=== PATIENT | male | born 1990 | race Caucasian/White ===

== ENCOUNTER 2018-07-23 19:04 | Emergency (ER) | payer SELFPAY ==
[2018-07-23 20:11] LABS: APPEARANCE,URINE SLIGHTLY-CLOUDY; BILIRUBIN,URINE NEGATIVE (NEGATIVE); COLOR,URINE YELLOW; GLUCOSE, URINE NEGATIVE (NEGATIVE); KETONES,URINE NEGATIVE (NEGATIVE); LEUKOCYTE ESTERASE,URINE NEGATIVE (NEGATIVE); NITRITE,URINE NEGATIVE (NEGATIVE); PROTEIN,URINE NEGATIVE (NEGATIVE); URINE SPECIFIC GRAVITY 1.031
[2018-07-23] MEDS ORDERED: AZITHROMYCIN 250 MG TABLET PO ONE (20:16)
[2018-07-23] MEDS ORDERED: CEFTRIAXONE INJ 250 MG VIAL IM ONE (20:16)
[2018-07-23] MEDS ORDERED: LIDOCAINE 1% INJ-PF (10 MG/ML) 30 ML SDV INJ ONE (20:16)
--- NOTE | 2018-07-23 20:17 | ER Document Report ---
HPI - HPI Patient complains to provider of: Concern about STD Time Seen by Provider: 07/23/18 19:52 Onset: Other - Month Pain Level: Denies Context: Patient states that he felt like he had symptoms worrisome for chlamydia about a month ago. Patient states the symptoms got better and that he has no symptoms at this time. Patient states he is here with a friend who is also being seen so that he would get checked out. Patient denies any penile drainage or discharge. Patient denies any urinary symptoms. Associated Symptoms: None Exacerbated by: Denies Relieved by: Denies Similar symptoms previously: Yes Recently seen / treated by doctor: No - ROS ROS below otherwise negative: Yes Systems Reviewed and Negative: Yes All other systems reviewed and negative - CONSTITUTIONAL Constitutional: DENIES: Fever, Chills - GASTROINTESTINAL Gastrointestinal: DENIES: Abdominal Pain, Nausea, Patient vomiting - URINARY Urinary: DENIES: Dysuria, Urgency, Frequency - MUSCULOSKELETAL Musculoskeletal: DENIES: Extremity pain - DERM Skin Color: Normal Skin Problems: None Past Medical History - General Information source: Patient - Social History Smoking Status: Current Every Day Smoker Chew tobacco use (# tins/day): No Frequency of alcohol use: Social Drug Abuse: Heroin, Methamphetamine Occupation: None Family History: Reviewed & Not Pertinent Patient has suicidal ideation: No Patient has homicidal ideation: No - Medical History Medical History: Negative Renal/ Medical History: Denies: Hx Peritoneal Dialysis Surgical Hx: Negative Vertical Provider Document - CONSTITUTIONAL Agree With Documented VS: Yes Exam Limitations: No Limitations General Appearance: WD/WN, No Apparent Distress - INFECTION CONTROL TRAVEL OUTSIDE OF THE [place] IN LAST 30 DAYS: No - HEENT HEENT: Atraumatic, Normocephalic - NECK Neck: Normal Inspection, Supple - RESPIRATORY Respiratory: Breath Sounds Normal, No Respiratory Distress - CARDIOVASCULAR Cardiovascular: Regular Rate, Regular Rhythm - GI/ABDOMEN Gastrointestinal: Abdomen Soft, Abdomen Non-Tender, No Organomegaly - REPRODUCTIVE Notes: Patient deferred - BACK Back: Normal Inspection - MUSCULOSKELETAL/EXTREMETIES Musculoskeletal/Extremeties: MAEW - NEURO Level of Consciousness: Awake, Alert, Appropriate Motor/Sensory: No Motor Deficit, No Sensory Deficit - DERM Integumentary: Warm, Dry, No Rash Course - Vital Signs Vital signs: Temp Pulse Resp BP Pulse Ox 98.4 F 78 18 126/75 H 100 07/23/18 19:08 07/23/18 19:08 07/23/18 19:08 07/23/18 19:08 07/23/18 19:08 - Laboratory Laboratory results interpreted by me: 07/23/18 19:40 Urine Urobilinogen 2.0 H Discharge - Discharge Clinical Impression: Concern about STD in male without diagnosis Condition: Stable Disposition: HOME, SELF-CARE Instructions: Azithromycin ([facility]), Rocephin ([facility]) Additional Instructions: Return immediately for any new or worsening symptoms Followup with your primary care provider, call tomorrow to make a followup appointment Cultures are pending, will call if you need any different treatment Safe sex practices [facility] [NO [facility]AL MD] - Follow up as needed
[2018-07-23 20:43] VITALS: BP 131/79
[2018-07-23 21:29] LABS: CHLAM PCR NOT DETECTED (NOT DETECT); GON PCR NOT DETECTED (NOT DETECT)
== END 2018-07-23 20:52 | disposition home or self-care (01) ==
LOC: ER 19:04
DX: Z20.2 Contact with and (suspected) exposure to infections with a predominantly sexual mode of transmission (principal); F17.200 Nicotine dependence, unspecified, uncomplicated; F11.10 Opioid abuse, uncomplicated; F15.10 Other stimulant abuse, uncomplicated
CPT/HCPCS: 99283; 96372; 81001; 87491; 87591; J3490; J0696

== ENCOUNTER 2018-10-13 11:58 | Emergency (ER) | payer SELFPAY ==
[2018-10-13 12:05] VITALS: BP 140/62
--- NOTE | 2018-10-13 12:28 | ER Document Report ---
HPI - HPI Time Seen by Provider: 10/13/18 12:09 Pain Level: 0 Notes: Patient is a 28-year-old male with no significant past medical history who presents the emergency department complaining of bilateral lower leg/ankle swelling that began yesterday. 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 Patient states that he has not had issues with swelling in the past. Denies drug allergies. He does not have any associated pain or redness. He is able to ambulate without any difficulties. He does not take any medicines daily. Patient does admit to smoking but denies IV drug abuse. He is urinating normally. Denies any prolonged immobilization, distance travel, recent surgery/trauma, personal cancer history, hormone use, or previous DVT/PE. Denies any headache, fever, URI, sore throat, chest pain, palpitations, syncope, cough, shortness of breath, wheeze, dyspnea, abdominal pain, nausea/vomiting/diarrhea, urinary retention, dysuria, hematuria, loss of control of bowel or bladder, numbness/tingling, saddle anesthesia, muscle paralysis/weakness, or rash. - ROS Systems Reviewed and Negative: Yes All other systems reviewed and negative Past Medical History - Social History Smoking Status: Current Every Day Smoker Family History: Reviewed & Not Pertinent Renal/ Medical History: Denies: Hx Peritoneal Dialysis Vertical Provider Document - CONSTITUTIONAL Agree With Documented VS: Yes Notes: PHYSICAL EXAMINATION: GENERAL: Well-appearing, well-nourished and in no acute distress. LUNGS: Breath sounds clear to auscultation bilaterally and equal. No wheezes rales or rhonchi. HEART: Regular rate and rhythm without murmurs, rubs, gallops. ABDOMEN: Soft, nontender, nondistended abdomen. No guarding, no rebound. No masses appreciated. Normal bowel sounds present. No CVA tenderness bilaterally. Musculoskeletal: FROM to passive/active. Strength 5+/5. Extremities: 1+ pitting edema b/l to the ankles and lower legs to the distal 1/3 leg. Peripheral pulses 2+. Capillary refill less than 3 seconds. Mary negative. No asymmetry to the lower extremities bilaterally. NEUROLOGICAL: Cranial nerves grossly intact. Normal speech, normal gait. Normal sensory, motor exams PSYCH: Normal mood, normal affect. SKIN: Warm, Dry, normal turgor, no rashes or lesions noted. - INFECTION CONTROL TRAVEL OUTSIDE OF THE [place] IN LAST 30 DAYS: No Course - Re-evaluation Re-evalutation: 10/13/18 12:[address] Bose who is in agreement with dispo/plan: Patient is an afebrile, well-hydrated, 28-year-old male who presents emergency department with bilateral lower extremity symmetric pitting edema. Vitals are acceptable without significant tachycardia, tachypnea, or hypoxia. PE is otherwise unremarkable. Home and was negative bilaterally and there is no asymmetry or signs of infection. No labs or imaging warranted at this time. Patient is nontoxic-appearing and is tolerating p.o. without difficulty. Low suspicion for any sepsis, meningitis, cellulitis, DVT, CHF, renal failure, or other acute systemic emergent condition at this time. Patient aware to monitor symptoms and seek medical attention with any acute changes. Conservative measures reviewed with elevation and compression. Recheck with your PCM in 3-5 days. Consider consult with a vascular provider. Return to the ED with any other worsening/concerning symptoms. Patient is in agreement. - Vital Signs Vital signs: Temp Pulse Resp BP Pulse Ox 98.2 F 85 16 140/62 H 100 10/13/18 12:04 10/13/18 12:04 10/13/18 12:04 10/13/18 12:04 10/13/18 12:04 Discharge - Discharge Clinical Impression: Bilateral lower extremity edema Condition: Stable Disposition: HOME, SELF-CARE Instructions: Edema, Peripheral ([facility]) Additional Instructions: Rest, Ice, Compression, Elevation Tylenol/ibuprofen as needed Light stretches daily Strength exercises as able F/u with your PCP in 3-5 days for a recheck Consider consult with a vascular provider. Return to the ED with any worsening symptoms and/or development of fever, headache, chest pain, palpitations, syncope, shortness of breath, trouble breathing, abdominal pain, n/v/d, muscle weakness/paralysis, numbness/tingling, swelling, redness, or other worsening symptoms that are concerning to you. Forms: Elevated Blood Pressure, Smoking Cessation Education Referrals: TERI PICKETT MD [ACTIVE STAFF] - Follow up as needed
== END 2018-10-13 12:32 | disposition home or self-care (01) ==
LOC: ER 11:58
DX: R60.0 Localized edema (principal); F17.200 Nicotine dependence, unspecified, uncomplicated
CPT/HCPCS: 99283